=== PATIENT | female | born 1940 | race Two or more races ===

== ENCOUNTER 2017-12-27 07:19 | Outpatient (CLI) | payer OTHER | END 2017-12-27 07:23 | disposition home or self-care (01) | LOC: SONOGRAMA 07:19 | DX: E04.1 Nontoxic single thyroid nodule (principal) ==

== ENCOUNTER → 2019-02-21 | Day surgery (SDC) | payer OTHER ==
[~2019-02-21] MED LIST: ALODIPINE PO; ATENOLOL25 MG PO; CLONIDINE HCL0.2 MG PO; GLIMEPIRIDE4 MG PO; LASIX20 MG PO; LIPITOR20 MG PO; LOSARTAN POTASS25 MG PO; PERCOCET 5-3251 EACH PO; TRAJENTA PO
== END | disposition home or self-care (01) ==
LOC: ADM 02-16 10:30 → CIR.AMB 02-20 10:30
DX: E04.2 Nontoxic multinodular goiter (principal)